=== PATIENT | female | born 2000 | race Caucasian/White ===

== ENCOUNTER 2022-02-26 03:12 | Emergency (ER) | payer BC, SELFPAY ==
[2022-02-26] VITALS (8 sets, daily range): BP systolic 75–92; BP diastolic 45–66; PULSE 61–78; RESP 12–18; TEMP 36.3; O2SAT 96–100; BMI 23.0
--- NOTE | 2022-02-26 03:35 | ED.GENADULT ---
HPI - General Adult General Date Seen: 02/26/22 Chief complaint: Dental/Oral/Mouth Injury/Pain Stated complaint: infection in right mouth,vomiting, chills,diarrhea Time Seen by Provider: 02/26/22 03:27 Source: patient and family Mode of arrival: ambulatory Limitations: no limitations History of Present Illness HPI narrative: Patient is a 22-year-old female who had her wisdom teeth removed the day before yesterday. The decision was made to remove them because the dentist thought that one of them was infected. She started taking Zithromax two days ago as well. Tonight she began vomiting. Initially there was some bile that came up and since then has just been dry heaves. She has had no fevers. She is not taking in anything to eat or drink. She is having difficulty opening her mouth. She is using Tylenol and ibuprofen for pain. Related Data Home Medications Medication Instructions Recorded Confirmed azithromycin 250 mg tablet mg 02/26/22 bupropion HCl 100 mg tablet,12 hr mg PO 02/26/22 sustained-release chlorhexidine gluconate 0.12 % 02/26/22 mouthwash ibuprofen 600 mg tablet mg 02/26/22 Previous Rx's Medication Instructions Recorded hydrocodone 5 mg-acetaminophen 325 1 tab PO Q4H PRN pain #10 tabs 02/26/22 mg tablet ondansetron 8 mg disintegrating 8 mg PO TID PRN nausea and 02/26/22 tablet vomiting #9 tabs Allergies Allergy/AdvReac Type Severity Reaction Status Date / Time amoxicillin Allergy Mild Rash Verified 02/26/22 03:23 Sulfa (Sulfonamide Allergy Mild Rash Verified 02/26/22 03:23 Antibiotics) Review of Systems Narrative: Review of systems is outlined above otherwise noted to be negative. PFSH PFSH Social History Smoking Status: Never smoker Do you use any of these nicotine containing products: None Second hand tobacco smoke exposure: No How often do you have a drink containing alcohol: never AUDIT-C Alcohol total score: 0 Non-prescribed substance use: denies use Exam Narrative: Exam Narrative: Vitals noted. Patient is very pale. She is dry heaving to the point that her mother must do most of the talking for her. HEENT: Conjunctiva clear. Tympanic membranes are pearly white bilaterally. Posterior pharynx is difficult to see. The patient can only open her mouth about 1 cm. No palpable trismus. Neck is supple without adenopathy significant. Lungs: Clear to auscultation in all damon. No wheezes, rales, rhonchi. Heart: Regular rate and rhythm without murmur. Abdomen: Soft and nontender. No guarding, rigidity, rebound. Bowel sounds are normal. No palpable masses. Extremities: No cyanosis or edema. Good distal pulses. Skin: No abnormalities noted of the exposed skin. She is pale and clammy. Neurologic: Awake, alert, fully oriented. Neurologic exam is nonfocal. Const: Vital Signs, click to edit/add: Vital Signs - 24 hr 02/26/22 03:16 02/26/22 03:50 02/26/22 04:00 Temperature 97.4 F L Pulse Rate [Pulse Oximeter] 78 78 71 Respiratory Rate 16 12 12 Blood Pressure [Ri ght Upper Arm] 92/60 82/55 L 81/59 L Pulse Oximetry 100 100 100 Oxygen Delivery Me thod Room Air Room Air Room Air 02/26/22 04:30 02/26/22 05:00 02/26/22 05:15 Temperature Pulse Rate [Pulse Oximeter] 75 69 73 Respiratory Rate 12 12 12 Blood Pressure [Ri ght Upper Arm] 87/63 L 75/45 L 80/48 L Pulse Oximetry 98 97 97 Oxygen Delivery Me thod Room Air Room Air Room Air 02/26/22 05:30 02/26/22 05:45 Temperature Pulse Rate [Pulse Oximeter] 61 69 Respiratory Rate 12 18 Blood Pressure [Ri ght Upper Arm] 82/66 L 83/57 L Pulse Oximetry 96 96 Oxygen Delivery Me thod Room Air Room Air Course Course Hospital Course: Patient seen and examined. An IV is established and she is given a L of normal saline. 30 mg of Toradol and 4 mg of Zofran are also given. Reevaluation(s) Reevaluation #1: Patient's nausea and pain began to return after initial meds wore off. She was given Compazine 10 mg IV and fentanyl 50 mcg IV with excellent results. A 2 L of saline was also given. She feels considerably better and is ready to go home. Vital Signs Vital signs: Initial Vital Signs Temperature 97.4 F L 02/26/22 03:16 Temperature Source Temporal Artery Scan 02/26/22 03:16 Pulse Rate 78 02/26/22 03:16 Pulse Rhythm 02/26/22 03:16 Pulse Strength 3+ Normal 02/26/22 03:16 Respiratory Rate 16 02/26/22 03:16 Blood Pressure 92/60 02/26/22 03:16 Blood Pressure Mean 70 02/26/22 03:16 Blood Pressure Position Supine 02/26/22 03:16 Pulse Oximetry 100 02/26/22 03:16 Oxygen Delivery Method 02/26/22 03:16 Vital Signs Temperature 97.4 F L 02/26/22 03:16 Pulse Rate 78 02/26/22 03:16 Respiratory Rate 16 02/26/22 03:16 Blood Pressure 92/60 02/26/22 03:16 Pulse Oximetry 100 02/26/22 03:16 Oxygen Delivery Method 02/26/22 03:16 Temperature 97.4 F L 02/26/22 03:16 Pulse Rate 69 02/26/22 05:45 Respiratory Rate 18 02/26/22 05:45 Blood Pressure 83/57 L 02/26/22 05:45 Pulse Oximetry 96 02/26/22 05:45 Oxygen Delivery Method 02/26/22 05:45 Medical Decision Making Lab Data Labs: Lab Results 02/26/22 02/26/22 Range/Units 03:46 03:46 WBC 5.31 (4.50-11.00) K/uL RBC 4.25 (4.00-5.20) m/uL Hgb 12.9 (12.0-16.0) gm/dL Hct 38.4 (33.0-51.0) % MCV 90 (80-100) fL MCH 30 (26-34) pg MCHC 34 (32-36) gm/dL RDW Coeff of Rebecca 12.6 (11.5-15.5) % Plt Count 245 (140-440) K/uL Neut % (Auto) 86.6 H (42.0-72.0) % Lymph % (Auto) 12.2 L (20-44) % [place] % (Auto) 0.2 (0.0-11.0) % Eos % (Auto) 0.2 (0.0-7.0) % Baso % (Auto) 0.0 (0.0-3.0) % Neut # (Auto) 4.60 (1.7-7.0) K/uL Lymph # (Auto) 0.60 L (0.90-2.90) K/uL [place] # (Auto) 0.00 (0.00-0.90) K/UL Eos # (Auto) 0.01 (0.00-0.50) K/uL Baso # (Auto) 0.00 (0.00-0.30) K/uL Abs Immat Gran (auto) 0.04 (0.00-0.30) K/uL Imm/Tot Granulo (auto) 0.8 % Sodium 138 (135-149) mmol/L Potassium 3.6 (3.6-5.1) mmol/L Chloride 106 (96-114) mmol/L Carbon Dioxide 20 (20-32) mmol/L BUN 10 (5-24) mg/dL Creatinine 0.6 (0.5-1.5) mg/dL Estimated Creat Clear 120.63 Estimated GFR 129 ml/min Glucose 135 H (60-115) mg/dL Calcium 9.3 (8.4-10.6) mg/dL Discharge Plan Discharge Clinical Impression: Post-operative nausea and vomiting Patient Disposition: Home w/ Parent or Adult Condition: Improved Additional Instructions: Push fluids in frequent small amounts. Continue ibuprofen 3 times a day. Use Zofran for nausea and [place] [facility] for refractory pain. Contact your oral surgeon to find out how important this Zithromax is as you may be able to stop it. Prescriptions: New ondansetron 8 mg tablet,disintegrating 8 mg PO TID PRN (Reason: nausea and vomiting) Qty: 9 0RF hydrocodone-acetaminophen 5-325 mg tablet 1 tab PO Q4H PRN (Reason: pain) Qty: 10 0RF No Action azithromycin 250 mg tablet bupropion HCl 100 mg tablet sustained-release 12 hr PO Label Comments: TAKE 1 TABLET BY MOUTH EVERY DAY IN THE MORNING ibuprofen 600 mg tablet Label Comments: TAKE 1 TABLET BY MOUTH EVERY 6 HOURS NEEDED FOR PAIN chlorhexidine gluconate 0.12 % mouthwash Label Comments: SWISH AND SPIT 1/2 OZ TWICE DAILY FOR 7 DAYS Follow Up/Referrals: Lucretia Santa MD [Staff Physician] - Carolina Dodson MD [Primary Care Provider] - Stand Alone Forms: [facility] Info Instructions
--- OUTSIDE RECORDS SUMMARY | 2022-02-26 03:46 | XMS_ITS ---
:2000 Author Care Team Providers Name Role Phone Kenzie Martins Primary Care Provider Unavailable Allergies Code Code System Name Reaction Severity Status Onset Effexor ? ? Active ? Penicillins ? ? Active ? Sulfa (Sulfonamide Antibiotics) ? ? Active ? Medications Name Status Start Date Stop Date ? ? methylphenidate 5 mg tablet Active ? Not available TK 1 T PO BID Problems None recorded. Procedures Notes: 11/26/2019: *Procedure Name: *O THER Digestive System Surgery Results Lab Results Date Name Specimen Result Interpretation Description Value Range Status Address ? 10/03/2020 Bacterial ? Gardnerella negative negative ? [id number]: Vaginosis [address] Vaginitis Panel, Vaginal ? ? ? Trichomonas negative negative ? [id number]: [address] [place] [address] ? ? ? Terra negative negative ? [id number] [facility] [place]: [address] [facility] [address] [place] [address] Past Encounters 10/03/2020 Vaginal Discharge Kenzie Martins, CN: [address] [facility] [address], [address] [place] [phone], Ph. Social History Tobacco Smoking Status Never Smoker Notes: Tobacco *Status: Never *Note: 10/12/2018 - Vaccine List Vaccine Type COVID-19 (SARS-COV-2) vaccine, unspecifi ed 07/23/2020 HPV9 11/11/2017 Plan of Care Reminders Provider Appointments None recorded. ? ? Lab None recorded. ? ? Referral None recorded. ? ? Procedures None recorded. ? ? Surgeries None recorded. ? ? Imaging None recorded. ? ? Vitals 10/03/2020 10:30AM G_OFFICE VISIT Height Weight BMI Blood Pressure 5 ft 3 in 129.2 lbs 22.9 kg/m2 100/68 mm[Hg] 05/11/2019 Height Weight BMI Blood Pressure 5 ft 3 in 138 lbs 24.45 kg/m2 110/76 mm[Hg] 11/17/2018 Height Weight BMI Blood Pressure 5 ft 3 in 132 lbs 23.38 kg/m2 112/60 mm[Hg] 10/12/2018 Height Weight BMI Blood Pressure 5 ft 3 in 128 lbs 22.67 kg/m2 94/66 mm[Hg] 11/11/2017 Height Weight BMI Blood Pressure 5 ft 3 in 117 lbs 20.73 kg/m2 94/62 mm[Hg] 06/28/2017 Height Weight BMI Blood Pressure 5 ft 3 in 120 lbs 21.26 kg/m2 90/70 mm[Hg] 04/06/2017 Height Weight BMI Blood Pressure 5 ft 3 in 121 lbs 21.43 kg/m2 98/60 mm[Hg] 03/18/2017 Height Weight BMI Blood Pressure 5 ft 3 in 121 lbs 21.43 kg/m2 102/74 mm[Hg] 08/16/2016 Height Weight BMI Blood Pressure 5 ft 3 in 125 lbs 22.14 kg/m2 100/76 mm[Hg] 07/01/2016 Height Weight BMI Blood Pressure 5 ft 3 in 128.81 lbs 22.82 kg/m2 96/64 mm[Hg] 03/06/2014 Height Weight BMI Blood Pressure 5 ft 3 in 128 lbs 22.67 kg/m2 100/60 mm[Hg] 04/07/2011 Height Weight BMI Blood Pressure 5 ft 98 lbs 19.14 kg/m2 92/60 mm[Hg]
--- OUTSIDE RECORDS SUMMARY | 2022-02-26 03:46 | XMS_ITS | Clinical Summary ---
:2000 Author Organization [employer] [facility] [place] [address] Care Team Providers Name Role Phone Carolina Dodson MD Primary Care Provider [phone] Allergies Active Allergy Reactions Severity Noted Date Comments Amoxicillin Rash 04/27/2017 Per mom, oriana cruz had a rash [address] arting Amoxicillin so there is a possible allerg y to this. Sulfa (Sulfonamide Rash 07/10/2016 Antibiotics) Medications Medication Sig Dispensed Refills Start End Date Status Date buPROPion 0 Active (WELLBUTRIN SR) 150 2 mg Sustained-Release tablet cholecalciferol TAKE 1 CAPSULE 0 Active (VITAMIN D3) 2,000 BY MOUTH EVERY 2 unit capsule DAY WITH MEAL amitriptyline On at bedtime 60 Tablet 2 Ac tive (ELAVIL) 25 mg for prevention 2 tabletIndications: of headache. Migraine syndrome May increase to 2 at bedtime after 2 weeks as needed. 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/03/2018 Overview: Tried on multiple meds in the past Wellbutrin: severe anxiety multiple SSRIs including: Effexor, proza c, Lexapro - made symptoms worse partial hospitalization program at [facility] 04/27/2017-05/17/2017 Generalized anxiety disorder Resolved Problems Problem Noted Date Resolved Date Severe single current episode of major depressive disorder, 02/13/2018 without psychotic features Major depressive disorder, recurrent episode, moderate 03/03/2018 Encounters Date Type Specialty Care Team Description 02/08/2022 Telephone Lora White PA 01/28/2022 Office Visit David Eldridge Ear Problem ( Rt ear MD Gregg pain, pulsing i n ear, headache, x 2 w [place]) 01/28/2022 Travel 01/20/2022 Nurse/Clinic Staff Flu Shot Only 01/20/2022 Travel 01/07/2022 Office Visit Lora White Derm Problem (lesion) ANNETTE De Leon 01/07/2022 Travel from Last 3 Months Immunizations Name Administration Dates Next Due AMB Influenza, IIV4 PF (=>6 mos 02/17/2017 Flulaval,Fluzone Fluarix)(Flu Clinic Only) COVID-19 vaccine (Stephen-J&J) PFLISA 07/23/2020 DTaP 12/07/2004, 05/26/2000, 1999, 1999, 1999 HIB HbOC (HibTITER) 05/26/2000 HIB-HepB (Comvax) 1999, 1999 HPV 9 (Gardasil 9) 07/27/2021, 02/21/2013 Hep A, Ped/adol, 3 Dose 02/21/2013 Hepatitis A (Peds) 02/21/2013, 12/04/2011 Hepatitis A, Unspecified 02/21/2013, 12/04/2011 Hepatitis B, Unspecified 1999, 1999, 1999 Human Papilloma Virus Vaccine 02/21/2013 Inactivated Polio Vaccine 12/07/2004, 05/26/2000, 1999 , 1999 Influenza A (H1N1), Inactivated 03/05/2009 Influenza Virus, Unspecified 02/24/2016 Influenza, IIV3 (Age >=3 years) 02/19/2008 Influenza, IIV4 01/20/2022, 01/09/2021, 01/23/2018 Influenza, IIV4 (=>6mos) MDV 01/31/2020, 03/03/2019 MMR 12/07/2004, 10/11/2000 MMR, Unspecified 12/07/2004, 10/11/2000 Meningococcal Vaccine (Menactra) 12/04/2011 Meningococcal, Unspecified 12/04/2011 Pneumococcal conj 7-Valent (Prevnar 7) 05/26/2000 Polio Virus, Unspecified 12/07/2004, 05/26/2000, 1999, 1999 Tdap 12/04/2011 Tdap, Unspecified 12/04/2011 Varicella Vaccine 05/26/2000 Family History Medical History Relation Name Comments GI Disease Brother Gilbert's Heart Disease Father Cancer-prostate Maternal Grandfather Coronary artery disease Maternal Grandfather Cancer-breast Maternal Grandmother Diabetes type II Maternal Grandmother Arrhythmia Mother SVT GI Disease Mother IBS Cancer Paternal Grandfather Diabetes type II Paternal Grandmother Heart Disease Paternal Grandmother Relation Name Status Comments Brother Father Maternal Grandfather Maternal Grandmother Mother Paternal Grandfather Paternal Grandmother Social History Tobacco Use Types Packs/Day Years Used Date Never Smoker Smokeless Tobacco: Never Used Tobacco Cessation: Counseling Given: Yes Alcohol Use Standard Drinks/Week Comments No 0 (1 standard drink = 0.6 oz pure alcoho l) Sex Assigned at Date Recorded Not on file COVID-19 Exposure Response Date Recorded In the last 10 days, have you been in contact No / Unsure 01/28/2022 12:49 PM CDT with someone who was confirmed or suspected to have Coronavirus/COVID-19? Obstetrics History Last Filed Vital Signs Vital Sign Reading Time Taken Comments Blood Pressure 101/70 01/28/2022 12:58 PM CDT Pulse 89 01/28/2022 12:58 PM CDT Temperature 36.6 ??C (97.9 ??F) 01/28/2022 12:58 PM CDT Respiratory Rate 12 10/13/2017 12:42 PM CDT Oxygen Saturation 98% 01/28/2022 12:58 PM CDT Inhaled Oxygen Concentration - - Weight 55.2 kg (121 lb 9.6 oz) 01/28/2022 12:58 PM CDT Height 159.1 cm (5' 2.64) 01/28/2022 12:58 PM CDT Body Mass Index 21.79 01/28/2022 12:58 PM CDT Plan of Treatment Health Maintenance Due Date Last Done Comments Hepatitis C screening for age 1002/11/2017 18-79 Pap test for age 21-65 02/12/2020 COVID-19 vaccine series (3 - 05/29/2021 04/03/2021, 021 Booster for Stephen series) Tetanus booster 12/03/2021 12/04/2011, 12/04/2011 BMI (ht and wt on same day) for 01/28/2023 01/28/2022, 04/1 04/2021, age 18+ 06/18/2021, Additional history exists Depression screening for age 12+ 01/28/2023 01/28/2022, , 12/10/2020, Additional history exists Tdap Completed 12/04/2011, 12/04/2011 HPV series for age 9-26 Completed 07/27/2021, 02/21/2013, 02/21/2013 Influenza for age 9-49 Completed 01/20/2022, 01/09/2021, 01/31/2020, Additional history exists Procedures Procedure Name Priority Date/Time Associated Diagnosis Comme nts PATH TISSUE EXAM Routine 01/07/2022 8:50 AM Neoplasm of Resul ts for this CDT uncertain behavior procedure are in of skin the results section. from Last 3 Months Results PATH TISSUE EXAM (01/07/2022 8:50 AM CDT) Component Value Ref Test Analysis Performed At [facility] gist Range Method Time Signature Case Report Pathology Report ?Case: [id number] ? 01/08/2022 [facility] Authorizing Provider: ??Lora White, ??Collected: ? 01/07/2022 0850 ? 11:27 AM HEALTH ? PA ? CDT LABORATORY-C Ordering Location: ? [facility] ? Received: ?01/07/2022 1143 ? ENTRA L ? Clinic ? LABORATORY Pathologist: ? Apolonia Rachel MD ? Specimen: ?Back, left up per back ? Final A) SKIN, LEFT UPPER BACK, BIOPSY: 2021 [facility] Electronically Diagnosis 1. Compound nevus with moderate atypia 1 1:27 AM [facility] signed by ?? a. Margin status: POSITIVE ??(peripheral) CDT LABORATORY-C Apolonia Rachel 2. ??Negative for malignancy Yesi Betancourt MD on LABORATORY 01/08/2022 at 11:27 AM Comment A) Incomplete 01/08/2022 [facility] sampling of 11:27 AM [facility] melanocytic CDT LABORATORY-C proliferations ENTRAL may impair LABORATORY accurate diagnosis. Clinical correlation with the overall size of the lesion, and presence of remaining or recurring pigment, is required for optimal treatment. Clinical Rule out atypia 01/08/2022 [facility] Information 11:27 AM HEALTH CDT LABORATORY-C ENTRAL LABORATORY Gross A) Received in formalin, lab eled with the patient's name and left upper back, is a 0.9 x 0.5 cm skin biopsy. There is a 0.4 x 0.3 cm flat álvarez-brown lesion. The specimen is inked orange, trisected, and entirely submitted in one cassette. 01/08/2022 [facility] Description 11:27 AM [facility] LH 01/07/2022 CDT LABORATORY-C ENTRAL LABORATORY Microscopic The final 01/08/2022 [facility] Description diagnosis is 11:27 AM [facility] based on CDT LABORATORY-C microscopic ENTRAL examination of LABORATORY appropriate sections of all specimens. Additional 01/08/2022 [facility] Information Interpreted at [facility], Central Laboratory - [address], [place] [address] 11:27 AM [facility] CDT LABORATORY-C ENTRAL LABORATORY Specimen Anatomical Collection Method Collection Time Receive d Time (Source) Location / / Volume Laterality Other (Back) Non-Blood / 01/07/2022 8:50 AM 2 Unknown CDT 11:43 AM CDT Lora BRYANT PATHOLOGY/CYTOLOGY Performing Organization Address City/State/ZIP Code Phon e Number [facility] [employer] [address] [place] [address] LABORATORY-CENTRAL 2000 LABORATORY from Last 3 Months Insurance Payer Benefit Plan / Subscriber ID Effective Dates Phone Addre ss Type Group [employer] [place] [id number] 2020-Present [address] [place] [address] (Home) [place]Z [id number] Care Teams Splicer Operator Relationship Specialty Start Date End Date Carolina Dodson MD PCP - General Family Practice 12/17/[address] [place] [address]
--- OUTSIDE RECORDS SUMMARY | 2022-02-26 03:46 | XMS_ITS ---
:1999 Author Care Team Providers Name Role Phone Rob Mireles Primary Care Provider Unavailable Allergies Code Code System Name Reaction Severity Status Onset Penicillins Rash ? Active ? Sulfa (Sulfonamide Antibiotics) Rash ? Active ? Medications Name Status Start Date Stop Date ? ? azithromycin 250 mg tablet Completed ? 11/01 bupropion HCl 75 mg tablet Completed ? 11/01 cephalexin 500 mg capsule Completed ? 2017 clonazepam 0.5 mg tablet Active ? Not elly ilable clonazepam 1 mg tablet Completed ? 8 doxycycline hyclate 100 mg tablet Completed ? 11/01/2017 mirtazapine 7.5 mg tablet Completed ? 2017 ondansetron 4 mg disintegrating tablet Completed ? 11/01/2017 prednisone 20 mg tablet Completed ? 11/02/19 18 propranolol 20 mg tablet Completed ? 018 venlafaxine ER 37.5 mg capsule,extended release 24 hr Completed ? 11/01/2017 JAE (28) 3 mg-0.02 mg tablet Completed ? Problems None recorded. Procedures None recorded. Results Lab Results None recorded. Past Encounters None recorded. Social History None recorded. Vaccine List None recorded. Plan of Care Reminders Provider Appointments None recorded. ? ? Lab None recorded. ? ? Referral None recorded. ? ? Procedures None recorded. ? ? Surgeries None recorded. ? ? Imaging None recorded. ? ? Vitals Height Weight BMI Blood Pressure 5 ft 3 in 118 lbs 20.9 kg/m2 110/76 mm[Hg]
[2022-02-26] MEDS: ONDANSETRON 2 MG/ML inj 4 MG IVP (03:47)
[2022-02-26] MEDS: KETOROLAC 30 MG/ML inj IVP (03:47)
[2022-02-26 03:51] LABS: Eosinophils Absolute Auto 0.01 K/uL (0.00-0.50); Eosinophils Percent Auto 0.2 % (0.0-7.0); Hematocrit 38.4 % (33.0-51.0); Hemoglobin* 12.9 gm/dL (12.0-16.0); Immature Granulocytes Abs Auto 0.04 K/uL (0.00-0.30); Immature Granulocytes Pct Auto 0.8 %; Lymphocytes Percent Auto 12.2 % (20-44); Mean Corpuscular HGB Conc 34 gm/dL (32-36); Mean Corpuscular Hemoglobin 30 pg (26-34); Mean Corpuscular Volume 90 fL (80-100); Monocytes Percent Auto 0.2 % (0.0-11.0); Neutrophils Percent Auto 86.6 % (42.0-72.0); Platelet Count* 245 K/uL (140-440); RDW Coefficient of Variation % 12.6 % (11.5-15.5); Red Blood Count 4.25 m/uL (4.00-5.20); White Blood Count* 5.31 K/uL (4.50-11.00)
[2022-02-26 03:52] LABS: Slide Review Reflex No
[2022-02-26] MEDS: 0.9 % SODIUM CHLORIDE 1000 ml 1,000 ML IV ×2 (03:52→04:30)
[2022-02-26 04:03] LABS: Chloride* 106 mmol/L (96-114); Sodium* 138 mmol/L (135-149)
[2022-02-26 04:04] LABS: Potassium* 3.6 mmol/L (3.6-5.1)
[2022-02-26 04:06] LABS: Carbon Dioxide* 20 mmol/L (20-32); Creatinine* 0.6 mg/dL (0.5-1.5); Est. Creatinine Clearance* 120.63; Estimated Glomerular Filt Rate 129 ml/min
[2022-02-26 04:07] LABS: Blood Urea Nitrogen* 10 mg/dL (5-24); Calcium* 9.3 mg/dL (8.4-10.6); Glucose* 135 mg/dL (60-115)
[2022-02-26] MEDS: PROCHLORPERAZINE 5 MG/ML VIAL 10 MG IV (04:53)
[2022-02-26] MEDS: fentaNYL 100 MCG/2 ML inj 50 MCG IVP (04:53)
== END 2022-02-26 06:10 | disposition home or self-care (01) ==
PROVIDERS: Emergency Provider Family Medicine; PCP Family Medicine
DX: R11.2 Nausea with vomiting, unspecified (principal); Z98.890 Other specified postprocedural states
CPT/HCPCS: 36415; 80048; 85025; 96361; 96374; 96375; 99283; 99284; J0780; J1885; J2405; J3010; J7030

== ENCOUNTER 2023-01-24 15:30 | Outpatient (RCR) | payer BC, SELFPAY | END 2023-01-24 16:22 | disposition home or self-care (01) | PROVIDERS: PCP Family Medicine; Visit Provider Student in an Organized Health Care Education/Training Program | DX: S03.40XS Sprain of jaw, unspecified side, sequela (principal); M26.603 Bilateral temporomandibular joint disorder, unspecified; M26.629 Arthralgia of temporomandibular joint, unspecified side; Z51.89 Encounter for other specified aftercare | CPT/HCPCS: 97110; 97140; 97161; 97535 ==

== ENCOUNTER 2023-02-02 16:32 | Emergency (ER) | payer BC, SELFPAY ==
[2023-02-02 16:46] VITALS: BP 99/74; PULSE 70; RESP 16; TEMP 36.6; O2SAT 98; BMI 22.3
--- NOTE | 2023-02-02 17:33 | ED.GENADULT ---
HPI - General Adult General Chief complaint: Chest Pain Stated complaint: chest pain, shortness of breath Time Seen by Provider: 02/02/23 16:45 History of Present Illness HPI narrative: This 22-year-old female comes in with her mother reporting several symptoms that have been occurring over the past 3 or 4 days. These include symptoms of fatigue, muscle weakness, exertional shortness of breath, headache, feeling off balance, abdominal discomfort and since the past 3 hours feeling some chest discomfort that is reproducible with movement and taking a deep breath. Prior to this she was in good health. She is not on any new medications. She is a student in college studying [employer]. She arrives with normal vital signs. Related Data Home Medications Medication Instructions Recorded Confirmed azithromycin 250 mg tablet mg 02/26/22 bupropion HCl 100 mg tablet,12 hr mg PO 02/26/22 sustained-release chlorhexidine gluconate 0.12 % 02/26/22 mouthwash ibuprofen 600 mg tablet mg 02/26/22 Previous Rx's Medication Instructions Recorded hydrocodone 5 mg-acetaminophen 325 1 tab PO Q4H PRN pain #10 tabs 02/26/22 mg tablet ondansetron 8 mg disintegrating 8 mg PO TID PRN nausea and 02/26/22 tablet vomiting #9 tabs Allergies Allergy/AdvReac Type Severity Reaction Status Date / Time amoxicillin Allergy Mild Rash Verified 02/26/22 03:23 Sulfa (Sulfonamide Allergy Mild Rash Verified 02/26/22 03:23 Antibiotics) Review of Systems Status of ROS: Reports: 10 or more systems reviewed and unremarkable except as noted in History and below Narrative: Constitutional: No fevers, no weight gain or loss. Eyes: No discharge. No vision changes. HENT: No congestion, no sore throat, no ear pain. Cardiovascular: No palpitations. Respiratory: No wheezes, no cough. She reports shortness of breath with exertion. Gastrointestinal: No vomiting, no diarrhea. Genitourinary: No dysuria, no hematuria. Musculoskeletal: Normal range of motion. Skin: No rashes, no pruritis. Neurological: No dizziness, weakness, sensory change, speech change. Endo/Heme/Allergies: No bruising or bleeding. No polydipsia. Pysch: no suicidality, no anxiety, no insomnia. All other systems reviewed and are negative. PFSH PFSH Social History Smoking Status: Never smoker Do you use any of these nicotine containing products: None Second hand tobacco smoke exposure: No How often do you have a drink containing alcohol: never AUDIT-C Alcohol total score: 0 Non-prescribed substance use: denies use service: No Exam Narrative: Exam Narrative: Constitutional: Well-developed, well-nourished, no acute distress. HEENT: Normocephalic, atraumatic. Neck: Normal range of motion. Nontender. Supple. Heart: Regular. No murmurs. Normal rate. Intact distal pulses. Lungs: Clear to auscultation. No wheezes, rhonchi, or rales. Chest: Pain is distinctly reproduced with taking a deep breath and with certain movements. Pain is located along the sternal border but is not reproducible when palpating in this area. Abdomen: Normal bowel sounds. Nontender. No rebound tenderness. Genitalia: Deferred. Back: No midline tenderness. Normal range of motion. Extremities: Normal range of motion. No injury. Skin: Intact. No rash. Warm. No erythema or pallor. Neurologic: No altered sensation. No weakness. Alert and oriented. Psychiatric: No suicidality. No anxiety or depression. No insomnia. Nursing notes and vitals signs are reviewed. Const: Vital Signs, click to edit/add: Vital Signs - 24 hr 02/02/23 16:46 Temperature 97.8 F Pulse Rate [Apical ] 70 Respiratory Rate 16 Blood Pressure [Ri ght Upper Arm] 99/74 Pulse Oximetry 98 Oxygen Delivery Me thod Room Air Course Vital Signs Vital signs: Initial Vital Signs Temperature 97.8 F 02/02/23 16:46 Temperature Source Temporal Artery Scan 02/02/23 16:46 Pulse Rate 70 02/02/23 16:46 Pulse Rhythm Irregular 02/02/23 16:46 Respiratory Rate 16 02/02/23 16:46 Blood Pressure 99/74 02/02/23 16:46 Blood Pressure Mean 82 02/02/23 16:46 Blood Pressure Position Supine 02/02/23 16:46 Pulse Oximetry 98 02/02/23 16:46 Oxygen Delivery Method Room Air 02/02/23 16:46 Vital Signs Temperature 97.8 F 02/02/23 16:46 Pulse Rate 70 02/02/23 16:46 Respiratory Rate 16 02/02/23 16:46 Blood Pressure 99/74 02/02/23 16:46 Pulse Oximetry 98 02/02/23 16:46 Oxygen Delivery Method Room Air 02/02/23 16:46 Temperature 97.8 F 02/02/23 16:46 Pulse Rate 70 02/02/23 16:46 Respiratory Rate 16 02/02/23 16:46 Blood Pressure 99/74 02/02/23 16:46 Pulse Oximetry 98 02/02/23 16:46 Oxygen Delivery Method Room Air 02/02/23 16:46 Medical Decision Making MDM Narrative Medical decision making narrative: This patient comes in reporting several rather nonspecific complaints. She arrives with normal vital signs. Her EKG shows normal sinus rhythm with some variability of a sinus rhythm. Lab results also returned with normal findings including normal white count, normal electrolytes, negative troponin. Strep test is also negative. These findings are reassuring to the patient. She may have some kind of viral infection. I encouraged use of [id number] medicines. Lab Data Labs: Lab Results 02/02/23 02/02/23 02/02/23 Range/Units 17:39 18:10 18:46 WBC 5.25 (4.50-11.00) K/uL RBC 4.41 (4.00-5.20) m/uL Hgb 13.0 (12.0-16.0) gm/dL Hct 40.9 (33.0-51.0) % MCV 93 (80-100) fL MCH 30 (26-34) pg MCHC 32 (32-36) gm/dL RDW Coeff of Rebecca 12.8 (11.5-15.5) % Plt Count 248 (140-440) K/uL Neut % (Auto) 60.8 (42.0-72.0) % Lymph % (Auto) 29.1 (20-44) % [place] % (Auto) 7.8 (0.0-11.0) % Eos % (Auto) 1.9 (0.0-7.0) % Baso % (Auto) 0.4 (0.0-3.0) % Neut # (Auto) 3.19 (1.7-7.0) K/uL Lymph # (Auto) 1.53 (0.90-2.90) K/uL [place] # (Auto) 0.40 (0.00-0.90) K/UL Eos # (Auto) 0.10 (0.00-0.50) K/uL Baso # (Auto) 0.02 (0.00-0.30) K/uL Abs Immat Gran (auto) 0.00 (0.00-0.30) K/uL Imm/Tot Granulo (auto) 0.0 % Sodium 140 (135-149) mmol/L Potassium 3.9 (3.6-5.1) mmol/L Chloride 109 (96-114) mmol/L Carbon Dioxide 23 (20-32) mmol/L Anion Gap 8 (7-15) mEq/L BUN 10 (5-24) mg/dL Creatinine 0.5 (0.5-1.5) mg/dL Estimated Creat Clear 151.11 Estimated GFR 135 ml/min Glucose 108 (60-115) mg/dL Calcium 9.1 (8.4-10.6) mg/dL C-Reactive Protein < 0.5 L (0.5-1.0) mg/dL Group A Strep DNA NOT DETECTED (Not Detectd) POC Troponin I 0.00 L (0.01-0.04) ng/ml ECG Data Attestation: I personally reviewed and interpreted this ECG as follows: Interpretation: Normal sinus rhythm. Rate is 87 beats per minute. There are no ST or T-wave abnormalities. Discharge Plan Discharge Clinical Impression: Atypical chest pain, Pharyngitis Patient Disposition: Home, Self-Care Condition: Stable Additional Instructions: Use [id number] medicines as needed and directed. Follow up with MD or return if worsening symptoms happen. Prescriptions: No Action azithromycin 250 mg tablet bupropion HCl 100 mg tablet sustained-release 12 hr PO Patient Comments: TAKE 1 TABLET BY MOUTH EVERY DAY IN THE MORNING ibuprofen 600 mg tablet Patient Comments: TAKE 1 TABLET BY MOUTH EVERY 6 HOURS NEEDED FOR PAIN chlorhexidine gluconate 0.12 % mouthwash Patient Comments: SWISH AND SPIT 1/2 OZ TWICE DAILY FOR 7 DAYS ondansetron 8 mg tablet,disintegrating 8 mg PO TID PRN (Reason: nausea and vomiting) Qty: 9 0RF hydrocodone-acetaminophen 5-325 mg tablet 1 tab PO Q4H PRN (Reason: pain) Qty: 10 0RF Follow Up/Referrals: Carolina Dodson MD [Primary Care Provider] - Stand Alone [facility]: [facility] Info [facility]
[2023-02-02 18:27] LABS: Basophils Absolute Auto 0.02 K/uL (0.00-0.30); Basophils Percent Auto 0.4 % (0.0-3.0); Eosinophils Percent Auto 1.9 % (0.0-7.0); Hematocrit 40.9 % (33.0-51.0); Lymphocytes Absolute Auto 1.53 K/uL (0.90-2.90); Lymphocytes Percent Auto 29.1 % (20-44); Mean Corpuscular HGB Conc 32 gm/dL (32-36); Mean Corpuscular Hemoglobin 30 pg (26-34); Mean Corpuscular Volume 93 fL (80-100); Monocytes Percent Auto 7.8 % (0.0-11.0); Neutrophils Absolute Auto 3.19 K/uL (1.7-7.0); Neutrophils Percent Auto 60.8 % (42.0-72.0); Platelet Count* 248 K/uL (140-440); RDW Coefficient of Variation % 12.8 % (11.5-15.5); Red Blood Count 4.41 m/uL (4.00-5.20); White Blood Count* 5.25 K/uL (4.50-11.00)
[2023-02-02 18:45] LABS: Slide Review Reflex No
[2023-02-02 18:47] LABS: Chloride* 109 mmol/L (96-114)
[2023-02-02 18:48] LABS: Potassium* 3.9 mmol/L (3.6-5.1); Sodium* 140 mmol/L (135-149)
[2023-02-02 18:50] LABS: Creatinine* 0.5 mg/dL (0.5-1.5); Est. Creatinine Clearance* 151.11; Estimated Glomerular Filt Rate 135 ml/min
[2023-02-02 18:51] LABS: Anion Gap 8 mEq/L (7-15); Blood Urea Nitrogen* 10 mg/dL (5-24); Calcium* 9.1 mg/dL (8.4-10.6); Carbon Dioxide* 23 mmol/L (20-32); Glucose* 108 mg/dL (60-115)
[2023-02-02 18:54] LABS: C Reactive Protein* < 0.5 mg/dL (0.5-1.0)
[2023-02-02 19:44] LABS: Strep A DNA Probe* NOT DETECTED (Not Detectd)
== END 2023-02-02 20:02 | disposition home or self-care (01) ==
PROVIDERS: Emergency Provider Emergency Medicine Emergency Medical Services; PCP Family Medicine
DX: R07.89 Other chest pain (principal); J02.9 Acute pharyngitis, unspecified
CPT/HCPCS: 36415; 80048; 84484; 85025; 86140; 87651; 93005; 99284

== ENCOUNTER 2023-02-12 14:36 | Emergency (ER) | payer BC, SELFPAY ==
[2023-02-12 14:50] VITALS: BP 103/72; PULSE 104; RESP 18; TEMP 36.5; O2SAT 98; BMI 22.0
--- NOTE | 2023-02-12 15:54 | ED.GENADULT ---
HPI - General Adult General Chief complaint: Difficulty Swallowing Stated complaint: Trouble Swallowing Time Seen by Provider: 02/12/23 14:38 History of Present Illness HPI narrative: This 23-year-old female comes in with a report of some pain in her throat and some dysphagia when swallowing. She does not report any problem with a food bolus that is unable to be swallowed. She was seen a couple times in the last 2 or 3 weeks, once by me in the emergency department. She had some atypical chest pain in the past. She states that she has taken some Tums which brought some minimal relief to her symptoms. She contacted her clinic and was told to come here. She does not report any fevers. She does not have any upper respiratory symptoms. She is able to swallow but feels a sensation when doing so. Related Data Home Medications Medication Instructions Recorded Confirmed azithromycin 250 mg tablet mg 02/26/22 bupropion HCl 100 mg tablet,12 hr mg PO 02/26/22 sustained-release chlorhexidine gluconate 0.12 % 02/26/22 mouthwash ibuprofen 600 mg tablet mg 02/26/22 Previous Rx's Medication Instructions Recorded hydrocodone 5 mg-acetaminophen 325 1 tab PO Q4H PRN pain #10 tabs 02/26/22 mg tablet ondansetron 8 mg disintegrating 8 mg PO TID PRN nausea and 02/26/22 tablet vomiting #9 tabs pantoprazole 20 mg tablet,delayed 20 mg PO DAILY #30 tabs 02/12/23 release (Protonix) Allergies Allergy/AdvReac Type Severity Reaction Status Date / Time amoxicillin Allergy Mild Rash Verified 02/26/22 03:23 Sulfa (Sulfonamide Allergy Mild Rash Verified 02/26/22 03:23 Antibiotics) Review of Systems Status of ROS: Reports: 10 or more systems reviewed and unremarkable except as noted in History and below Narrative: Constitutional: No fevers, no weight gain or loss. Eyes: No discharge. No vision changes. HENT: No congestion, no ear pain. She reports some discomfort in her chest and neck that may be due to reflux. Cardiovascular: No chest pain, no palpitations. Respiratory: No shortness of breath, no wheezes, no cough. Gastrointestinal: No abdominal pain, no vomiting, no diarrhea. Genitourinary: No dysuria, no hematuria. Musculoskeletal: Normal range of motion. Skin: No rashes, no pruritis. Neurological: No dizziness, weakness, sensory change, speech change. Endo/Heme/Allergies: No bruising or bleeding. No polydipsia. Pysch: no suicidality, no anxiety, no insomnia. All other systems reviewed and are negative. PFSH PFS Social History Smoking Status: Never smoker Do you use any of these nicotine containing products: None Second hand tobacco smoke exposure: No How often do you have a drink containing alcohol: never AUDIT-C Alcohol total score: 0 Non-prescribed substance use: denies use service: No Exam Narrative: Exam Narrative: Constitutional: Well-developed, well-nourished, no acute distress. HEENT: Normocephalic, atraumatic. Tympanic membranes appear normal bilaterally. Oropharynx also is normal without tonsillar hypertrophy or exudate. Neck: Normal range of motion. Nontender. Supple. Heart: Regular. No murmurs. Normal rate. Intact distal pulses. Lungs: Clear to auscultation. No chest discomfort. No wheezes, rhonchi, or rales. Abdomen: Normal bowel sounds. Nontender. No rebound tenderness. Genitalia: Deferred. Back: No midline tenderness. Normal range of motion. Extremities: Normal range of motion. No injury. Skin: Intact. No rash. Warm. No erythema or pallor. Neurologic: No altered sensation. No weakness. Alert and oriented. Psychiatric: No suicidality. No anxiety or depression. No insomnia. Nursing notes and vitals signs are reviewed. Const: Vital Signs, click to edit/add: Vital Signs - 24 hr 02/12/23 14:50 Temperature 97.7 F Pulse Rate [Pulse Oximeter] 104 H Respiratory Rate 18 Blood Pressure [Ri ght Upper Arm] 103/72 Pulse Oximetry 98 Oxygen Delivery Me thod Room Air Course Vital Signs Vital signs: Initial Vital Signs Temperature 97.7 F 02/12/23 14:50 Temperature Source Temporal Artery Scan 02/12/23 14:50 Pulse Rate 104 H 02/12/23 14:50 Pulse Rhythm Regular 02/12/23 14:50 Respiratory Rate 18 02/12/23 14:50 Blood Pressure 103/72 02/12/23 14:50 Blood Pressure Mean 82 02/12/23 14:50 Blood Pressure Position Sitting 02/12/23 14:50 Pulse Oximetry 98 02/12/23 14:50 Oxygen Delivery Method Room Air 02/12/23 14:50 Vital Signs Temperature 97.7 F 02/12/23 14:50 Pulse Rate 104 H 02/12/23 14:50 Respiratory Rate 18 02/12/23 14:50 Blood Pressure 103/72 02/12/23 14:50 Pulse Oximetry 98 02/12/23 14:50 Oxygen Delivery Method Room Air 02/12/23 14:50 Temperature 97.7 F 02/12/23 14:50 Pulse Rate 104 H 02/12/23 14:50 Respiratory Rate 18 02/12/23 14:50 Blood Pressure 103/72 02/12/23 14:50 Pulse Oximetry 98 02/12/23 14:50 Oxygen Delivery Method Room Air 02/12/23 14:50 Medical Decision Making MDM Narrative Medical decision making narrative: This patient comes in with some symptoms that are more typical of reflux esophagitis. She may have a globus sensation also. Her exam is completely normal. She did have labs and imaging done in previous visit. I offered to recheck these and considered with her and her mother other options for imaging including CT scan of the neck and lateral x-ray of the neck. In a process of shared decision making these studies were discussed [facility] at that time. I stated that she should be on a proton pump inhibitor such as Prilosec or Protonix. The patient and her mother discuss these matters among themselves and elected to receive that prescription and forego any further studies at this time. I did recommend consideration of endoscopy and or follow-up with GI specialist. I provided information for such follow-up if they so choose. Discharge Plan Discharge Clinical Impression: Esophagitis, reflux, Globus sensation Patient Disposition: Home, Self-Care Condition: Stable Additional Instructions: Take Protonix as prescribed. Follow up with primary physician or if not improving or worsening consider and os copy or gastroenterology clinic. Endoscopy can be scheduled by calling [phone]. [facility] can be contacted for a clinic appointment if needed. Prescriptions: New pantoprazole [Protonix] 20 mg tablet,delayed release (DR/EC) 20 mg PO DAILY Qty: 30 2RF No Action azithromycin 250 mg tablet bupropion HCl 100 mg tablet sustained-release 12 hr PO Patient Comments: TAKE 1 TABLET BY MOUTH EVERY DAY IN THE MORNING ibuprofen 600 mg tablet Patient Comments: TAKE 1 TABLET BY MOUTH EVERY 6 HOURS NEEDED FOR PAIN chlorhexidine gluconate 0.12 % mouthwash Patient Comments: SWISH AND SPIT 1/2 OZ TWICE DAILY FOR 7 DAYS ondansetron 8 mg tablet,disintegrating 8 mg PO TID PRN (Reason: nausea and vomiting) Qty: 9 0RF hydrocodone-acetaminophen 5-325 mg tablet 1 tab PO Q4H PRN (Reason: pain) Qty: 10 0RF Follow Up/Referrals: Carolina Dodson MD [Primary Care Provider] - Stand Alone Forms: [facility] Info Instructions
== END 2023-02-12 16:37 | disposition home or self-care (01) ==
LOC: ED 16:20
PROVIDERS: Emergency Provider Emergency Medicine Emergency Medical Services; PCP Family Medicine
DX: K21.00 Gastro-esophageal reflux disease with esophagitis, without bleeding (principal); F45.8 Other somatoform disorders
CPT/HCPCS: 99283; 99284

== ENCOUNTER 2023-04-19 16:48 | Emergency (ER) | payer BC, SELFPAY ==
[2023-04-19 16:57] VITALS: BP 117/74; PULSE 125; RESP 16; TEMP 36.8; O2SAT 98; BMI 22.0
--- NOTE | 2023-04-19 18:51 | CRLHL7_ITS ---
For Patients: As a result of the Cures Act, medical imaging exams and procedure reports are released immediately into your electronic medical record. You may view this report before your referring provider. If you have questions, please contact your health care provider. INDICATION: Tachycardia, lightheaded.. TECHNIQUE: Chest 2 views. COMPARISON: June 12, 2021. FINDINGS: Cardiovascular and mediastinum: Cardiomediastinal silhouette is within normal limits. Lungs and pleural spaces: Lungs are clear. No sign of pleural effusion. No pneumothorax. Bones and soft tissues: No significant findings. IMPRESSION: No acute findings and no significant change from the prior exam. Dictated by Ioana Weaver MD @ 04/19/2023 8:17:12 PM (Electronically Signed)
[2023-04-19] MEDS: LACTATED RINGERS 1000 ML 1,000 ML IV (18:59)
[2023-04-19 19:09] LABS: Basophils Absolute Auto 0.03 K/uL (0.00-0.30); Basophils Percent Auto 0.5 % (0.0-3.0); Eosinophils Absolute Auto 0.19 K/uL (0.00-0.50); Eosinophils Percent Auto 3.5 % (0.0-7.0); Hematocrit 39.6 % (33.0-51.0); Hemoglobin* 13.2 gm/dL (12.0-16.0); Lymphocytes Absolute Auto 1.69 K/uL (0.90-2.90); Lymphocytes Percent Auto 30.8 % (20-44); Mean Corpuscular HGB Conc 33 gm/dL (32-36); Mean Corpuscular Hemoglobin 30 pg (26-34); Mean Corpuscular Volume 89 fL (80-100); Monocytes Percent Auto 11.1 % (0.0-11.0); Neutrophils Absolute Auto 2.96 K/uL (1.7-7.0); Neutrophils Percent Auto 54.1 % (42.0-72.0); Platelet Count* 263 K/uL (140-440); RDW Coefficient of Variation % 12.5 % (11.5-15.5); Red Blood Count 4.43 m/uL (4.00-5.20); White Blood Count* 5.48 K/uL (4.50-11.00)
[2023-04-19 19:10] LABS: Slide Review Reflex No
[2023-04-19 19:24] LABS: Chloride* 108 mmol/L (96-114); Sodium* 138 mmol/L (135-149)
[2023-04-19 19:25] LABS: Potassium* 3.9 mmol/L (3.6-5.1)
[2023-04-19 19:27] LABS: Anion Gap 8 mEq/L (7-15); Blood Urea Nitrogen* 6 mg/dL (5-24); Carbon Dioxide* 22 mmol/L (20-32); Creatinine* 0.5 mg/dL (0.5-1.5); Est. Creatinine Clearance* 143.52; Estimated Glomerular Filt Rate 134 ml/min
[2023-04-19 19:28] LABS: Calcium* 8.9 mg/dL (8.4-10.6); Glucose* 91 mg/dL (60-115)
[2023-04-19 19:30] VITALS: O2SAT 99
[2023-04-19 19:43] LABS: Troponin I* < 0.01 ng/mL (0.01-0.04)
[2023-04-19 19:46] LABS: PCR FLU A Negative PCR FLU A (Negative); PCR FLU B Negative PCR FLU B (Negative); PCR RSV Negative PCR RSV (Negative); SARS PCR* Negative SARS-CoV-2 (Negative)
--- NOTE | 2023-04-19 20:08 | ED_ITS ---
HPI - Arrhythmia/Palpitations General Date Seen: 04/19/23 Chief Complaint: Arrhythmia/Palpitations Stated Complaint: 140-160 HR per home test-rapid HR Time Seen by Provider: 04/19/23 18:37 Source: patient Mode of arrival: ambulatory Limitations: no limitations History of Present Illness HPI narrative: Patient is a 23-year-old female presenting for tachycardia lightheadedness. She states she started a new medicine yesterday, amitriptyline. Today she woke up felt like her heart was racing was feeling lightheaded. Symptoms persisted so she checked her pulse at home with a home O2 sat reader. It was ranging between 140 and 160. She called the triage line was told to come to the emergency department for evaluation. In triage her heart rate was in the 120s. She states she is feeling lightheaded and mildly dizzy. Has not had symptoms like this before. States she was having some chest discomfort earlier but currently is not. Denies any shortness of breath, fevers, chills, weakness, numbness, headache, vision changes, abdominal pain, nausea/vomiting. Related Data Home Medications Medication Instructions Recorded Confirmed bupropion HCl 100 mg tablet,12 hr 100 mg PO 02/26/22 sustained-release amitriptyline 25 mg tablet 25 mg PO QPM 04/19/23 04/19/23 propranolol 10 mg tablet 10 mg PO DAILY PRN 04/19/23 04/19/23 Allergies Allergy/AdvReac Type Severity Reaction Status Date / Time amoxicillin Allergy Mild Rash Verified 04/19/23 17:02 Sulfa (Sulfonamide Allergy Mild Rash Verified 04/19/23 17:02 Antibiotics) Review of Systems Status of ROS: Reports: 10 or more systems reviewed and unremarkable except as noted in History and below [facility] Social History Smoking Status: Never smoker Do you use any of these nicotine containing products: None Second hand tobacco smoke exposure: No How often do you have a drink containing alcohol: never AUDIT-C Alcohol total score: 0 Non-prescribed substance use: denies use service: No Exam Narrative: Exam Narrative: Const: Well-nourished, Well-developed, in mild distress Eyes: PERRL, no conjunctival injection, and symmetrical lids HENT: Atraumatic external nose and ears. Moist mucous membranes. Neck: Symmetric, trachea midline, No thyromegaly. CVS: Tachycardia, No murmurs or gallops. Peripheral pulses 2+ and equal in all extremities RESP: Unlabored respiratory effort. Clear to auscultation bilaterally. GI: Nontender/Nondistended, No rebound or guarding. MSK:Extremities w/o deformity, Normal Active ROM Skin: Warm, Dry. No rashes or lesions. Neuro: Normal Muscle tone, No focal neurological deficits. Psych: Awake, Alert, & Oriented x3. Appropriate mood and affect. Const: Vital Signs, click to edit/add: Vital Signs - 24 hr 04/19/23 16:57 Temperature 98.3 F Pulse Rate [Pulse Oximeter] 125 H Respiratory Rate 16 Blood Pressure [Ri ght Upper Arm] 117/74 Pulse Oximetry 98 Oxygen Delivery Me thod Room Air Course Vital Signs Vital signs: Initial Vital Signs Temperature 98.3 F 04/19/23 16:57 Temperature Source Temporal Artery Scan 04/19/23 16:57 Pulse Rate 125 H 04/19/23 16:57 Pulse Rhythm Irregular 04/19/23 16:57 Pulse Strength 3+ Normal 04/19/23 16:57 Respiratory Rate 16 04/19/23 16:57 Blood Pressure 117/74 04/19/23 16:57 Blood Pressure Mean 88 04/19/23 16:57 Blood Pressure Position Sitting 04/19/23 16:57 Pulse Oximetry 98 04/19/23 16:57 Oxygen Delivery Method Room Air 04/19/23 16:57 Vital Signs Temperature 98.3 F 04/19/23 16:57 Pulse Rate 125 H 04/19/23 16:57 Respiratory Rate 16 04/19/23 16:57 Blood Pressure 117/74 04/19/23 16:57 Pulse Oximetry 98 04/19/23 16:57 Oxygen Delivery Method Room Air 04/19/23 16:57 Temperature 98.3 F 04/19/23 16:57 Pulse Rate 125 H 04/19/23 16:57 Respiratory Rate 16 04/19/23 16:57 Blood Pressure 117/74 04/19/23 16:57 Pulse Oximetry 98 04/19/23 16:57 Oxygen Delivery Method Room Air 04/19/23 16:57 Medications Administered Medications: Discontinued Medications Generic Name Dose Route Start Last Admin Trade Name Freq PRN Reason Stop Dose Admin Lactated Ringer's 1,000 mls @ 1,000 mls/hr 04/19/23 18:51 04/19/23 20:16 Lactated Ringers 1000 Ml IV 04/19/23 19:50 Infused .Q1H ONE Infusion MDM - Arrhythmia/Palpitations MDM Narrative Medical decision making narrative: Patient is a 23-year-old female presenting to emergency department for tachyc ardia lightheadedness. She is having difficulty definitively saying if it is lightheadedness versus dizziness. We will give her fluids the see if they will help with her heart rate. Will do a cardiac workup including troponin, EKG, CBC, BMP, test, chest x-ray. EKG was done prior to me walking into the room showing her heart rate was only 82. I went in there after that heart rate was in the 110s. CBC, BMP, troponin, COVID/flu/RSV all returned showing no concerning abnormalities. Chest x-ray shows no concerning findings. I went in to evaluate her again and before I walked in her heart rate was 99-102 and after walked in the did jump up to 110 for the bed and then came back down. Some of her tachycardia might be related to anxiety. She is feeling better at this time and I did offer meclizine for dizziness but she refused at this time sane she was feeling better Lab Data Labs: Lab Results 04/19/23 Range/Units 18:55 WBC 5.48 (4.50-11.00) K/uL RBC 4.43 (4.00-5.20) m/uL Hgb 13.2 (12.0-16.0) gm/dL Hct 39.6 (33.0-51.0) % MCV 89 (80-100) fL MCH 30 (26-34) pg MCHC 33 (32-36) gm/dL RDW Coeff of Rebecca 12.5 (11.5-15.5) % Plt Count 263 (140-440) K/uL Neut % (Auto) 54.1 (42.0-72.0) % Lymph % (Auto) 30.8 (20-44) % [place] % (Auto) 11.1 H (0.0-11.0) % Eos % (Auto) 3.5 (0.0-7.0) % Baso % (Auto) 0.5 (0.0-3.0) % Neut # (Auto) 2.96 (1.7-7.0) K/uL Lymph # (Auto) 1.69 (0.90-2.90) K/uL [place] # (Auto) 0.60 (0.00-0.90) K/UL Eos # (Auto) 0.19 (0.00-0.50) K/uL Baso # (Auto) 0.03 (0.00-0.30) K/uL Abs Immat Gran (auto) 0.00 (0.00-0.30) K/uL Imm/Tot Granulo (auto) 0.0 % Sodium 138 (135-149) mmol/L Potassium 3.9 (3.6-5.1) mmol/L Chloride 108 (96-114) mmol/L Carbon Dioxide 22 (20-32) mmol/L Anion Gap 8 (7-15) mEq/L BUN 6 (5-24) mg/dL Creatinine 0.5 (0.5-1.5) mg/dL Estimated Creat Clear 143.52 Estimated GFR 134 ml/min Glucose 91 (60-115) mg/dL Calcium 8.9 (8.4-10.6) mg/dL Troponin I < 0.01 L (0.01-0.04) ng/mL HCG, Qual Negative (Negative) SARS-CoV-2 (PCR) Negative SARS-CoV-2 (Negative) Influenza Type A (PCR) Negative PCR FLU A (Negative) Influenza Type B (PCR) Negative PCR FLU B (Negative) RSV (PCR) Negative PCR RSV (Negative) Imaging Data Chest x-ray: Radiologist's impression: No acute findings and no significant change from the prior exam. Dictated by Ioana Weaver MD @ 04/19/2023 8:17:12 PM ECG Data Attestation: I personally reviewed and interpreted this ECG as follows: Prior ECG tracings: available for review Interpretation: Normal sinus rhythm a rate of 80 beats per minute, normal intervals, normal axis, no ST or T-wave abnormalities. Appears similar previous EKG on file Discharge Plan Discharge Clinical Impression: Palpitations Patient Disposition: Home, Self-Care Condition: Improved Instructions: Heart Palpitations (DC) Additional Instructions: Follow-up with the primary care provider if the symptoms persist. Return to emergency department for new or worsening symptoms Prescriptions: No Action bupropion HCl 100 mg tablet sustained-release 12 hr 100 mg PO Patient Comments: TAKE 1 TABLET BY MOUTH EVERY DAY IN THE MORNING amitriptyline 25 mg tablet 25 mg PO QPM propranolol 10 mg tablet 10 mg PO DAILY PRN Follow Up/Referrals: Carolina Dodson MD [Primary Care Provider] - Stand Alone Forms: [employer] Info Instructions
[2023-04-19 20:25] LABS: HCG Qualitative Serum* Negative (Negative)
[2023-04-19 20:45] VITALS: BP 121/78; PULSE 89; RESP 16; TEMP 36.8; O2SAT 98
[2023-04-19 21:44] VITALS: BP 121/78; PULSE 89; RESP 16; TEMP 36.8
== END 2023-04-19 21:45 | disposition home or self-care (01) ==
PROVIDERS: Emergency Provider Student in an Organized Health Care Education/Training Program; PCP Family Medicine
DX: R00.2 Palpitations (principal)
CPT/HCPCS: 36415; 71046; 80048; 84484; 84703; 85025; 87631; 93005; 94761; 99283; 99284; 99285; J7120

== ENCOUNTER 2025-01-03 14:24 | Emergency (ER) | payer BC, SELFPAY ==
--- OUTSIDE RECORDS SUMMARY | 2025-01-03 14:26 | XMS_ITS | Clinical Summary ---
Author Organization [employer] Address [facility] [place] [address] Care Team Providers Care Adventure Challenge Instructor Name Role Phone Ivory, Carolina Gill MD Primary Care Provider Allergies Active Allergy Reactions Criticality Noted Date Comments Amoxicillin Rash 04/27/2017 Per mom, patient had a rash 6 days after starting Amoxicillin so there is a possible allergy to this. Sulfa (Sulfonamide Antibiotics) Rash 07/10/2016 Medications propranoloL (INDERAL) 10 mg tabletIndication s:Paroxysmal SVT (supraventricula r tachycardia) (HC) Take 1 Tablet (10 mg) by mouth two times daily. 90 Tablet 10/31/2023 Active folic acid 1 mg tabletIndication s:Lymphadenopath y,Fatigue, unspecified type Take 1 Tablet (1 mg) by mouth once daily. 90 Tablet 3 09/18/2024 Active cholecalciferol (Vitamin D3) (Vitamin D-3) 5,000 unit tab tabletIndication s:Pain of right midfoot Take 5,000 units by mouth once daily. Active crutchIndication s:Pain of right midfoot For home use. 2 Each 10/25/2024 Active meloxicam 15 mg tabletIndication s:Sesamoiditis of right foot,Neuritis Take 1 Tablet (15 mg) by mouth once daily. 30 Tablet 10/30/2024 Active durable medical equipment (DME)Indications :Sesamoiditis of right foot,Neuritis,Pa in of right midfoot Airselect, short, medium 1 Each 10/30/2024 Active buPROPion (WELLBUTRIN SR) 100 mg Sustained-Releas e tabletIndication s:Generalized anxiety disorder,Recurre nt major depressive disorder, in partial remission Take 1 Tablet (100 mg) by mouth once daily in the morning. 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 Overview (10/14/2022): 10/11/22: LEFT LATERAL LOW BACK, Lentiginous compound nevus with moderate atypia: Watch ADD (attention deficit disorder) without hyperac tivity 12/05/2019 Major depression in partial remission 03/03/2018 Overview (06/18/2019): Tried on multiple meds in the past Wellbutrin: severe anxiety multiple SSRIs including: Effexor, prozac, Lexapro - made symptoms worse partial hospitalization program at [facility] 04/27/2017- 05/17/2017 Generalized anxiety disorder 05/29/2010 Encounters Date Type Department Care Team Description 12/18/2024 Telephone [facility] [address] [place], [place] [id number] Lora White PA Results 12/17/2024 Orders Only [facility] [address] [place] [address] Lora White PA <No scans attached> 12/14/2024 12:45 PM CDT Orders Only [facility] [address] [facility] [address] [place] [address] [place] <No scans attached> 12/14/2024 Travel 11/28/2024 Refill [facility] [address] [place] [address] Carolina Dodson MD Refill Request; BUPROPION 11/26/2024 2:50 PM CDT Office Visit [facility] [address] [facility] [address] [place] [address] Lora White PA Derm Problem 11/26/2024 Travel 10/30/2024 1:45 PM CDT [facility] [address] [place], [place] [address] Javid Henderson MD Foot Injury 10/30/2024 Travel 10/27/2024 Travel 10/25/2024 11:34 AM CDT - 10/25/2024 12:44 PM CDT Emergency [facility] [address] [place] [phone] Ileana Jackson NP Pain of right midfoot (Primary Dx) Discharge Disposition: Home Self Care 10/25/2024 Travel 10/17/2024 1:00 PM CDT Orders Only [facility] [address] [facility] [address] [place] [address] Lab, [facility] 10/17/2024 Travel 10/10/2024 Telephone [facility] [address] [place] [address] Abdirahman Escobar, ORDERS NEEDED ([id number] - TOXOPLASMA GONDII PCR BLOOD OR CSF) from Last 3 Months Immunizations Immunization Administration Dates Next Due AMB Influenza, IIV4 PF (=>6 mos Flulaval,Fluzone Fluarix)(Flu Clinic Only) 02/17/2017 COVID-19 vaccine (Stephen-J&J) PF MDV 1 DTaP 12/07/2004, 1,1999,07/06,1999 HIB HbOC (HibTITER) 05/26/2000 HIB-HepB (Comvax) 1999,1999 HPV 9 (Gardasil 9) 07/27/2021,11/11/2017, 013 Hep A, Ped/adol, 3 Dose 02/21/2013 Hepatitis A (Peds) 02/21/2013,12/04/2011 Hepatitis A, Unspecified 02/21/2013,12/04/2011 Hepatitis B, Unspecified 1999,1999,0 1999 Human Papilloma Virus Vaccine 02/21/2013 Inactivated Polio Vaccine 12/07/2004,11/2000,1999,05/15 Influenza A (H1N1), Inactivated 03/05/2009 Influenza Virus, Unspecified 02/24/2016 Influenza, IIV3 (Age >=3 years) 02/19/2008 Influenza, IIV4 01/20/2022,01/09/2021,01/23/2018 Influenza, IIV4 (=>6mos) MDV 01/31/2020,03/03/20 19 MMR 12/07/2004,10/11/2000 MMR, Unspecified 12/07/2004,10/11/2000 Meningococcal Vaccine (Menactra) 12/04/2011 Meningococcal, Unspecified 12/04/2011 Pneumococcal conj 7-Valent (Prevnar 7) 1 Polio Virus, Unspecified 12/07/2004,11/2000,1999,05/15 Tdap 05/13/2022,12/04/2011 Tdap, Unspecified 12/04/2011 Varicella Vaccine 05/26/2000 Family [...] Tobacco Use Types Packs/Day Years Used Date Smoking Tobacco: Never Passive Smoke Exposure: Never Smokeless Tobacco: Never Tobacco Cessation:Counseling Given: Yes Alcohol Use Standard Drinks/Week Comments No 0 (1 standard drink = 0.6 oz pur e alcohol) PHQ-2 Answer Date Recorded PHQ-2 TOTAL SCORE 1 10/01/2024 Social Connections Answer Date Recorded Frequency of Communication with Friends and Fami ly 0 01/31/2023 Financial Resource Strain Answer Date R ecorded Difficulty of Paying Living Expenses 3 01/31/2023 Difficulty of Paying Living Expenses Not on file 01/31/2023 Food Insecurity Answer Date Recorded Worried About Running Out of Food in the Last Ye ar 1 01/31/2023 Transportation Needs Answer Date Record ed Lack of Transportation (Medical) 1 01/31/2023 Housing Stability Answer Date Recorded Unable to Pay for Housing in the Last Year 1 01/31/2023 Interpersonal Safety Answer Date Record ed Are you being hit, kicked, p ushed or yelled at (see row info)? 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 Gender Identity Not on file Sexual Orientation Not on file Obstetrics History Para Term AB IAB SAB Ectopic Multiple Livin g Live Births 0 0 0 0 0 0 0 0 0 0 0 Last Filed Vital Signs Vital Sign Reading Time Taken Comments Blood Pressure 97/69 10/25/2024 11:39 AM CDT Pulse 106 10/25/2024 11:39 AM CDT Temperature 36.3 C (97.3 F) 10/25/2024 11:39 AM CDT Respiratory Rate 16 09/12/2024 4:45 PM CDT Oxygen Saturation 98% 10/25/2024 11:39 AM CDT Inhaled Oxygen Concentration - - Weight 58.3 kg (128 lb 8 oz) 10/25/2024 11:39 AM CDT Height 160 cm (5' 3) 12/18/2023 5:01 AM CDT Body Mass Index 22.76 12/18/2023 5:01 AM CDT Plan of Treatment Health Maintenance Due Date Last Done Comments HIV for age 15-65 2014 Hepatitis C screening for ag e 18-79 2017 Pneumococcal series for age 6-49 (1 of 2 - PCV) 2018 05/26/2000 Pap test for age 21-65 02/12/2020 BMI (ht and wt on same day) for age 18+ 10/30/2024 10/31/2023, 08/10/2023, 02/08/2023, Additional history exists Influenza Vaccine (#1) 2024 , 01/09/2021, 01/31/2020, Additional history exists Depression screening for age 12+ 10/01/2025 10/01/2024, 10/01/2024, 02/04/2023, Additional history exists Tetanus booster 05/13/2032 05/13/2022, 11/16, 12/04/2011 RSV vaccine for adults or (1 - 1-dose 75+ series) 2074 Hepatitis B series for 19+ Completed 09/08, 1999, 1999, Additional history exists HPV series for age 9-45 Completed 07/28/19, 11/11/2017, 02/21/2013, Additional history exists COVID-19 vaccine series Completed 01/19/20, 01/20/2023, 03/31/2022, Additional history exists Procedures Procedure Name Priority Date/Time Associated Diagnosis Comments IRON PLUS IRON BINDING CAP Routine 12/14/2024 12:50 PM CDT Hair graying premature FERRITIN Routine 12/14/2024 12:50 PM CDT Hair graying premature VITAMIN D 25 (DEFICIENCY) Routine 12/14/2024 12:50 PM CDT Hair graying premature Vitamin D deficiency VITAMIN B12 Routine 12/14/2024 12:50 PM CDT Hair graying premature TSH Routine 12/14/2024 12:50 PM CDT Hair graying premature PATH TISSUE EXAM Routine 11/26/2024 3:00 PM CDT Neoplasm of uncertain behavior URIC ACID STAT 10/25/2024 12:29 PM CDT Pain of right midfoot CBC WITH AUTO DIFFERENTIAL STAT 10/25/2024 12:29 PM CDT Pain of right midfoot SEDIMENTATION RATE STAT 10/25/2024 12 :29 PM CDT Pain of right midfoot C-REACTIVE PROTEIN STAT 10/25/2024 12 :29 PM CDT Pain of right midfoot CBC WITH AUTO DIFFERENTIAL STAT 10/25/2024 12:29 PM CDT Pain of right midfoot XR FOOT 3 VIEWS RIGHT STAT 10/25/2024 12:02 PM CDT Pain of right midfoot TOXOPLASMA GONDII PCR BLOOD OR CSF Routine 10/17/2024 12:58 PM CDT Lymphadenopathy Fatigue, unspecified type from Last 3 Months Results * (ABNORMAL) VITAMIN D 25 (DEFICIENCY) (12/14/2024 12:50 PM CDT) VITAMIN D,25-OH,TOTAL,IA 29(L) 30 - 100 ng/mL 12/15/2024 4:36 AM CDT [facility] Comment: Vitamin D Status 25-OH Vitamin D: Deficiency: <20 ng/mL Insufficiency: 20 - 29 ng/mL Optimal: > or = 30 ng/mL For 25-OH Vitamin D testing on patients on D2-supplementation and patients for whom quantitation of D2 and D3 fractions is required, the QuestAssureD(TM) 25-OH VIT D, (D2,D3), LC/MS/MS is recommended: order code 15545 (patients >2yrs). See Note 1 Note 1 For additional information, please refer to http://education.Colibrí.Kahub/faq/ONT932 (This link is being provided for informational/ educational purposes only.) Blood BLOOD SPECIMEN / Unknown [facility] / Unknown 12/14/2024 12:50 PM CDT 12/14/2024 12:51 PM CDT Lora BRYANT SEND OUTS Final Result [facility] [address] [place] [address], * TSH (12/14/2024 12:50 PM CDT) Pathologist [facility] TSH 1.03 mIU/L 12/15/2024 4:36 AM CDT [facility] Comment: Reference Range > or = 20 Years 0.40-4.50 Ranges First trimester 0.26-2.66 Second trimester 0.55-2.73 Third trimester 0.43-2.91 Blood BLOOD SPECIMEN / Unknown [facility] / Unknown 12/14/2024 12:50 PM CDT 12/14/2024 12:51 PM CDT Lora BRYANT CHEMISTRY Final Result [facility] [address] [address], * (ABNORMAL) IRON PLUS IRON BINDING CAP (12/14/2024 12:50 PM CDT) [facility] IRON, TOTAL 42 40 - 190 mcg/dL 12/15/2024 4:20 AM CDT [facility] IRON BINDING CAPACITY 438 250 - 450 mcg/dL (calc) 12/15/2024 4:20 AM CDT [facility] % SATURATION 10(L) 16 - 45 % (calc) 12/15/2024 4:20 AM CDT [facility] Blood BLOOD SPECIMEN / Unknown [facility] / Unknown 12/14/2024 12:50 PM CDT 12/14/2024 12:51 PM CDT Lora BRYANT CHEMISTRY Final Result [facility] [address] [address], [place] [phone] * (ABNORMAL) FERRITIN (12/14/2024 12:50 PM CDT) [facility] FERRITIN 8(L) 16 - 154 ng/mL 12/15/2024 4:33 AM CDT [facility] Blood BLOOD SPECIMEN / Unknown [facility] / Unknown 12/14/2024 12:50 PM CDT 12/14/2024 12:51 PM CDT Lora BRYANT CHEMISTRY Final Result Performing Organization Address [facility] de Phone Number [facility] [address] [address], * VITAMIN B12 (12/14/2024 12:50 PM CDT) Pathologist [facility] VITAMIN B12 266 200 - 1100 pg/mL 12/15/2024 4:33 AM CDT [facility] Comment: Please Note: Although the reference range for vitamin B12 is 200-1100 pg/mL, it has been reported that between 5 and 10% of patients with values between 200 and 400 pg/mL may experience neuropsychiatric and hematologic abnormalities due to occult B12 deficiency; less than 1% of patients with values above 400 pg/mL will have symptoms. Blood BLOOD SPECIMEN / Unknown [facility] / Unknown 12/14/2024 12:50 PM CDT 12/14/2024 12:51 PM CDT Lora BRYANT CHEMISTRY Final Result Performing Organization Address [facility] de Phone Number [facility] [address] [address], * PATH TISSUE EXAM (11/26/2024 3:00 PM CDT) Pathologist [facility] Case Report Pathology Report Case: [id number] Authorizing Provider: Lora White, Collected: 11/26/2024 1500 PA Ordering Location: [facility] Received: 11/26/2024 1622 Clinic Pathologist: Joan Marmolejo MD Specimen: Skin, right upper back 11/29/2024 8:56 AM CDT [facility] Final Diagnosis SKIN, RIGHT UPPER BACK, BIOPSY: 1. Lentiginous compound nevus with mild cytologic atypia a. Margin status: Negative in the plane of section examined 2. Negative for malignancy 11/29/2024 8:56 AM CDT [facility] at 0855 CDT Comment Incomplete sampling of melanocytic proliferations may impair accurate diagnosis. Clinical correlation with the overall size of the lesion, and presence of remaining or recurring pigment, is required for optimal treatment. 11/29/2024 8:56 AM CDT [facility] Clinical Information Rule out atypia 11/29/2024 8:56 AM CDT [facility] Gross Description A) Received in formalin, labeled with the patient's name and right upper back, is a 0.9 x 0.7 cm skin biopsy. There is a 0.4 x 0.3 cm flat álvarez lesion. The specimen is inked yellow, trisected and entirely submitted in one cassette. VRS 11/27/2024 11/29/2024 8:56 AM CDT [facility] Microscopic Description The final diagnosis is based on microscopic examination of appropriate sections of all specimens. There is a lentiginous but fairly well circumscribed proliferation of mildly atypical melanocytes present along the dermal-epidermal junction. No significant upward migration is seen. The dermal melanocytic component lacks significant cytologic atypia and shows evidence of maturation. The presence of yellow ink is confirmed on tissue sections. 11/29/2024 8:56 AM CDT [facility] Additional Information Interpreted at [facility] - [address], [place] [address] 11/29/2024 8:56 AM CDT [facility] Other SPECIMEN FROM SKIN / Unknown Non-Blood / Unknown 11/26/2024 3:00 PM CDT 11/26/2024 4:22 PM CDT us Lora BRYANT PATHOLOGY/CYTOLOGY nal Result [facility] [address] [place] [address], * SEDIMENTATION RATE (10/25/2024 12:29 PM CDT) SEDIMENTATION RATE 2 <20 mm/hr 2024 3:24 PM CDT [facility] Blood BLOOD SPECIMEN / Unknown Venipuncture / Unknown 10/25/2024 12:29 PM CDT 10/25/2024 12:29 PM CDT us Ileana Albarran Manuel MAT MACHINE TENDER HEMATOLOGY Fin al Result [facility] [address] [place] [address] * (ABNORMAL) CBC WITH AUTO DIFFERENTIAL (10/25/2024 12:29 PM CDT) WHITE BLOOD COUNT 4.0(L) 4.5 - 11.0 thou/cu mm 10/25/2024 12:32 PM CDT [facility] RED BLOOD COUNT 4.59 4.00 - 5.20 mil/cu mm 10/25/2024 12:32 PM CDT [facility] HEMOGLOBIN 13.0 12.0 - 16.0 g/dL 10/25/2024 12:32 PM CDT [facility] HEMATOCRIT 40.1 33.0 - 51.0 % 10/25/2024 12:32 PM CDT [facility] MCV 87 80 - 100 fL 10/25/2024 12:32 PM CDT [facility] MCH 28.3 26.0 - 34.0 pg 10/25/2024 12:32 PM CDT [facility] MCHC 32.4 32.0 - 36.0 g/dL 10/25/2024 12:32 PM CDT [facility] RDW 14.7 11.5 - 15.5 % 10/25/2024 12:32 PM CDT [facility] PLATELET COUNT 222 140 - 440 thou/cu mm 10/25/2024 12:32 PM CDT [facility] MPV 11.1(H) 6.5 - 11.0 fL 10/25/2024 12:32 PM CDT [facility] % NEUT 53.4 % 10/25/2024 12:32 PM CDT [facility] % LYMPH 31.2 % 10/25/2024 12:32 PM CDT [facility] % MONO 11.5 % 10/25/2024 12:32 PM CDT [facility] % EOS 3.2 % 10/25/2024 12:32 PM CDT [facility] % BASO 0.7 % 10/25/2024 12:32 PM CDT [facility] ABSOLUTE NEUTROPHILS 2.1 1.7 - 7.0 thou/cu mm 10/25/2024 12:32 PM CDT [facility] ABSOLUTE LYMPHOCYTES 1.3 0.9 - 2.9 thou/cu mm 10/25/2024 12:32 PM CDT [facility] ABSOLUTE MONOCYTES 0.5 <0.9 thou/cu mm 10/25/2024 12:32 PM CDT [facility] ABSOLUTE EOSINOPHILS 0.1 <0.5 thou/cu mm 10/25/2024 12:32 PM CDT [facility] ABSOLUTE BASOPHILS 0.0 <0.3 thou/cu mm 10/25/2024 12:32 PM CDT [facility] Blood BLOOD SPECIMEN / Unknown Venipuncture / Unknown 10/25/2024 12:29 PM CDT 10/25/2024 12:29 PM CDT us Ileana Jackson MAT MACHINE TENDER HEMATOLOGY Fin al Result [facility] [address] [place] [address], * C-REACTIVE PROTEIN (10/25/2024 12:29 PM CDT) C-REACTIVE PROTEIN <0.3 <0.5 mg/dL 10/25/2024 3:32 PM CDT [facility] Blood BLOOD SPECIMEN / Unknown Venipuncture / Unknown 10/25/2024 12:29 PM CDT 10/25/2024 12:29 PM CDT Ileana Deion Jackson MAT MACHINE TENDER CHEMISTRY Fin al Result Performing Organization Address City/[facility]/ZIP Co de Phone Number [address] [address] * URIC ACID (10/25/2024 12:29 PM CDT) URIC ACID 2.7 2.4 - 5.7 mg/dL 10/25/2024 3:31 PM CDT [facility] Blood BLOOD SPECIMEN / Unknown Venipuncture / Unknown 10/25/2024 12:29 PM CDT 10/25/2024 12:29 PM CDT Ileana Aldanasonierma MAT MACHINE TENDER CHEMISTRY Fin al Result Performing Organization Address [facility] Co de Phone Number [address] [address] * XR FOOT 3 VIEWS RIGHT (10/25/2024 12:02 PM CDT) Anatomical Region Laterality Modality FEET, FOOT R Computed Radiogr aphy 10/25/2024 12:1 5 PM CDT Narrative 10/25/2024 12:15 PM CDT For Patients: As a result of the Cures Act, medical imaging exams and procedure reports are released immediately into your electronic medical record. You may view this report before your referring provider. If you have questions, please contact your health care provider. Indication: Pain Technique: Three views of the right foot Comparison: None Findings/Impression: No acute fracture or malalignment. No degenerative or inflammatory arthropathy. No suspicious osseous lesions. Mild soft tissue edema along the dorsal aspect of the forefoot. Dictated by Edward Tang MD @ 10/25/2024 12:15:04 PM (Electronically Signed) Procedure Note Edward Tang MD - 10/25/2024 For Patients: As a result of the s Act, medical imagingexams and procedure reports are released immediately into your electronicmedical record. You may view this report before your referring provider.If you have questions, please contact your health care provider. Indication: Pain Technique: Three views of the right foot Comparison: None Findings/Impression: No acute fracture or malalignment. No degenerative or inflammatory arthropathy. No suspicious osseouslesions. Mild soft tissue edema along the dorsal aspect of the forefoot. Dictated by Edward Tang MD @ 10/25/2024 12:15:04 PM (Electronically Signed) Ileana Ribeiroel Manuel MAT MACHINE TENDER GENERAL IMAGING Fin al Result * TOXOPLASMA GONDII PCR BLOOD OR CSF (10/17/2024 12:58 PM CDT) SOURCE TOXOPCR Results Below [facility] Comment:Sterile Body Fluid TOXOPLASMA GONDII DNA, QL REAL TIME PCR Not Detected Not Detected [facility] Comment: (Note) This test was developed and its analytical performance characteristics have been determined by [employer]. It has not been cleared or approved by the U.S. Food and Drug Administration. This assay has been validated pursuant to the CLIA regulations and is used for clinical purposes. [facility] [address] [facility] [address] [place] [address] Santhosh Carranza MD, PhD Other BLOOD SPECIMEN / Unknown 10/17/2024 12:58 PM CDT 10/17/2024 12:59 PM CDT Abdirahman Escobar DO SEND OUTS Final Result [facility] [address] [address], [facility] [address] [facility] [address] [place] [address] from Last 3 Months Insurance [id number] [facility] [place] [id number] [facility] [id number] [place] [address] Care Teams Adventure Challenge Instructor Relationship Specialty Start Date End Date Carolina Dodson MD PCP - General Family Practice 12/17/20
[2025-01-03 14:32] VITALS: BP 105/77; PULSE 93; RESP 16; TEMP 37; O2SAT 97; BMI 23.4
[2025-01-03 17:45] VITALS: BP 108/88; PULSE 78; RESP 16; O2SAT 98
--- NOTE | 2025-01-03 18:05 | ED_ITS ---
HPI - General Adult General Date Seen: 01/03/25 Chief complaint: Headache/Migraine Stated complaint: migraine Time Seen by Provider: 01/03/25 17:51 History of Present Illness HPI narrative: patient is a 24-year-old young woman here with a friend for evaluation of migraine headache which started a few days ago. She says she has a history of migraines but typically can manage them with ibuprofen. She has tried ibuprofen with this headache and it is just not completely going away. She has some nausea has not had vomiting. She has not had any other acute symptoms such as fevers, rashes, diarrhea, she does note that her eyes feel kind of tight and she has noted increased floaters. No other vision complaints. No recent trauma. She does not smoke but says she is exposed to secondhand smoke in the dorms. Denies any substance use including alcohol. Related Data Home Medications ?Medication ?Instructions ?Recorded ?Confirmed bupropion HCl 100 mg tablet,12 hr 100 mg PO 02/26/22 0 12/28/23 sustained-release propranolol 10 mg tablet 10 mg PO DAILY PRN 04/19/23 12/28/23 Allergies Allergy/AdvReac Type Severity Reaction Status Date / Time amoxicillin Allergy Mild Rash Verified 01/03/25 14:32 Sulfa (Sulfonamide Allergy Mild Rash Verified 01/03/25 14:32 Antibiotics) Review of Systems Status of ROS: Reports: 6 or more systems reviewed and unremarkable except as noted in History and below [facility] Social History Smoking Status: Never smoker Do you use any of these nicotine containing products: None Second hand tobacco smoke exposure: No How often do you have a drink containing alcohol: never AUDIT-C Alcohol total score: 0 Non-prescribed substance use: denies use service: No Exam Narrative: Exam Narrative: Vital signs reviewed In general, alert, nontoxic Young woman. She is wearing sunglasses. Head: Normocephalic, atraumatic. Eyes: Sclera clear. Pupils equal and reactive. ENT: Mucous membranes moist. Neck: Supple without adenopathy. Neurologic: Alert, conversant. Speech fluent, face symmetric. Moves all extremities equally. Skin: Warm, dry well perfused. Affect: Normal. Const: Vital Signs, click to edit/add: Vital Signs - 24 hr 01/03/25 14:32 Temperature 98.6 F Pulse Rate [Pulse Oximeter] 93 Respiratory Rate 16 Blood Pressure [Ri ght Upper Arm] 105/77 Pulse Oximetry 97 Oxygen Delivery Me thod Room Air Course Course ED Course: Patient presents with a moderate headache which is typical for her, not responding to her usual medications. Will place an IV, give Toradol, Reglan, Benadryl and some fluid. No red flags here to suggest that she needs emergent imaging or other significant workup today, doubt infectious etiology such as meningitis or encephalitis, intracranial hemorrhage. Headache is resolved with medications, I think it is reasonable to let her go home. Continue with current management, suggested Excedrin as an alternative diving profile if needed. See primary care if having more difficulty with uncontrolled headaches, return to the ER at any time for severe symptoms. Vital Signs Vital signs: Initial Vital Signs Temperature 98.6 F 01/03/25 14:32 Temperature Source Temporal Artery Scan 01/03/25 14:32 Pulse Rate 93 01/03/25 14:32 Respiratory Rate 16 01/03/25 14:32 Blood Pressure 105/77 01/03/25 14:32 Blood Pressure Mean 86 01/03/25 14:32 Blood Pressure Position Sitting 01/03/25 14:32 Pulse Oximetry 97 01/03/25 14:32 Oxygen Delivery Method Room Air 01/03/25 14:32 Vital Signs Temperature 98.6 F 01/03/25 14:32 Pulse Rate 93 01/03/25 14:32 Respiratory Rate 16 01/03/25 14:32 Blood Pressure 105/77 01/03/25 14:32 Pulse Oximetry 97 01/03/25 14:32 Oxygen Delivery Method Room Air 01/03/25 14:32 Temperature 98.6 F 01/03/25 14:32 Pulse Rate 93 01/03/25 14:32 Respiratory Rate 16 01/03/25 14:32 Blood Pressure 105/77 01/03/25 14:32 Pulse Oximetry 97 01/03/25 14:32 Oxygen Delivery Method Room Air 01/03/25 14:32 Medications Administered Medications: Generic Name Dose Route Start Last Admin Trade Name Freq PRN Reason Stop Dose Admin Sodium Chloride 1,000 mls @ 1,000 mls/hr 01/03/25 18:00 01/03/25 18:41 0.9 % Sodium Chloride 1000 Ml IV 01/03/25 18:59 Infused .Q1H NBA Infusion Discontinued Medications Generic Name Dose Route Start Last Admin Trade Name Gurinder PRN Reason Stop Dose Admin Diphenhydramine HCl 25 mg 01/03/25 17:55 01/03/25 18:11 Diphenhydramine 50 Mg/Ml Inj IVP 01/03/25 17:56 25 mg ONCE ONE Administration Metoclopramide HCl 10 mg/ 102 mls @ 306 mls/hr 01/03/25 17:55 01/03/25 18:41 Sodium Chloride IVPB 01/03/25 17:56 Infused ONCE ONE Infusion Ketorolac Tromethamine 15 mg 01/03/25 17:55 01/03/25 18:10 Ketorolac 15 Mg/Ml Inj IVP 01/03/25 17:56 15 mg ONCE ONE Administration Discharge Plan Discharge Clinical Impression: Migraine Patient Disposition: Home, Self-Care Condition: Improved Instructions: Migraine Headache (ED) Additional Instructions: If needed for recurrent headache, Excedrin may be a better option than ibuprofen. If you are having more trouble with uncontrolled headaches, follow- up with primary care. Return any time for acute worsening or new symptoms. Prescriptions: No Action bupropion HCl 100 mg tablet sustained-release 12 hr 100 mg PO Patient Comments: TAKE 1 TABLET BY MOUTH EVERY DAY IN THE MORNING propranolol 10 mg tablet 10 mg PO DAILY PRN Follow Up/Referrals: Carolina Dodson MD [Primary Care Provider, Family Practice] Stand Alone Forms: [employer] Info Instructions
[2025-01-03] MEDS: METOCLOPRAMIDE HCL 10 MG in 0.9 % SODIUM CHLORIDE 100 ml 100 ML 306 MG IVPB (18:10)
== END 2025-01-03 18:50 | disposition home or self-care (01) ==
PROVIDERS: Emergency Provider Emergency Medicine; PCP Family Medicine
DX: G43.909 Migraine, unspecified, not intractable, without status migrainosus (principal)
CPT/HCPCS: 96365; 96375; 99284; J1200; J1885; J2765; J7030